=== PATIENT | female | born 1985 | race Caucasian/White ===

== ENCOUNTER 2017-01-06 12:32 | Emergency (ER) ==
--- NOTE | 2017-01-06 13:06 | EKG Report ---
Test Performed on : 01/06/2017 12:50:45 PM Test Reason : CP Blood Pressure : / mmHG Vent. Rate : 091 BPM Atrial Rate : 091 BPM P-R Int : 146 ms QRS Dur : 076 ms QT Int : 360 ms P-R-T Axes : 063 026 043 degrees QTc Int : 442 ms Normal sinus rhythm. Normal ECG No previous ECGs available Unconfirmed Result
[2017-01-06] MEDS ORDERED: ASPIRIN PO STA (13:11)
[2017-01-06 13:32] LABS: MANUAL DIFF NEEDED? NO
[2017-01-06 13:34] LABS: BASO% 0.5 % (0.0-0.8); EOS# 0.16 X1000 (0.0-0.7); EOS% 1.6 % (0.0-10.0); HEMATOCRIT 39.4 % (37.0-47.0); IMM GRAN# 0.01 X1000 (0.0-0.04); IMM GRAN% 0.1 % (0.0-0.5); LYMPH# 3.01 X1000 (1.2-3.4); LYMPH% 29.7 % (20.5-51.1); MCH 32.9 PG (27-31); MCHC 35.5 g/dL (33-37); MCV 92.7 FL (81-99); MONO# 0.85 X1000 (0.11-0.59); MONO% 8.4 % (1.7-9.3); MPV 9.7 FL (7.4-10.4); NEUT% 59.7 % (42.2-75.2); PLT 266 X1000 (130-400); RBC 4.25 XMIL (4.2-5.4)
--- NOTE | 2017-01-06 13:50 | Diag Imaging Result Document ---
PROCEDURE NAME: CHEST-2 VIEWS - 01/06/2017 TWO VIEWS OF THE CHEST: FINDINGS: There is no evidence of acute cardiac or pulmonary disease. Compared to a 07/06/2015, there has been no significant change in the appearance of the chest. IMPRESSION: No evidence of acute disease.
[2017-01-06 13:53] LABS: INR 0.93 (0.86-1.15); PROTIME 12.8 Seconds (12.1-15.5)
[2017-01-06 13:54] LABS: PTT PL 27.5 Seconds (22.6-43.9)
[2017-01-06 13:56] LABS: AGAP 11; ALBUMIN 4.4 g/dL (3.5-5.0); ALKALINE PHOSPHATASE 85 U/L (32-104); BUN 8 mg/dL (8-22); CALCIUM 9.6 mg/dL (8.8-10.2); CHLORIDE 104 mmol/L (98-107); CK PROFILE 128 U/L (24-173); COSMO 276; GOT 16 U/L (10-30); GPT 14 U/L (10-36); MAGNESIUM 2.1 mg/dL (1.5-2.7); POTASSIUM 3.5 mmol/L (3.5-5.1); SODIUM 139 mmol/L (136-145); TCO2 25 mmol/L (25-35)
--- NOTE | 2017-01-06 14:01 | PROVIDER DOCUMENTATION ---
HPI-Chest Pain - General Chief Complaint: General Adult Stated Complaint: CHEST PAIN/SOB Time Seen by Provider: 01/06/17 13:37 Source: patient, family (sister) Allergies/Adverse Reactions: Patient Allergies Allergy/AdvReac Type Severity Reaction Status Date / Time codeine Allergy Unknown NAUSEA/VOMI Verified 04/29/16 23:20 TING Home Medications: Home Medication List Medication Instructions Recorded Confirmed Last Taken Type Acetaminophen/Diphenhydramine 1 each PO Q6-8H PRN PRN #30 tablet 09/25/16 Unknown Rx [Percogesic 325-12.5 mg Tablet] Amoxicillin [Amoxil] 500 mg PO BID #10 capsule 09/25/16 Unknown Rx Benzocaine 20% Gel [Orajel Maximum 1 applicatn TOP 4XDAY PRN PRN #1 09/25/[address] 20% Gel] tube - History of Present Illness-CP Nature of Presenting Problem: Pt is 31 y/o F presents to the ED with CP. Pt states she woke up and was shaking then the CP came. Pt states SOB. Pt denies F. Pt states N but no V or D. Location: reports: central Chest Pain Radiation: reports: no radiation Quality of Pain: reports: tightness Severity in ED: mild Onset/Duration: this morning Timing: still present, intermittent Context/Activities at Onset: reports: light activity Modifying Factors: improves with: nothing Associated Symptoms: reports: diaphoresis, nausea, shortness of breath. denies : abdominal pain, back pain, dizziness, edema, fatigue, fever/chills, headache, heartburn, rash, swelling/lump in chest, syncope, vomiting, weakness Nitro Today/Relief: no nitro taken today Aspirin Treatment Today: no aspirin today Prior Chest Pain/Cardiac Workup: reports: no prior chest pain, no prior cardiac workup Similar Symptoms Previously?: Yes Recently Seen Here or By Another Healthcare Provider: No Review of Systems - Adult - REVIEW OF SYSTEMS - ADULT Constitutional: denies: chills, fever Eyes: denies: blurred vision, double vision Ears, Nose, Mouth & Throat: denies: ear pain, nose pain, throat pain Cardiovascular: reports: chest pain. denies: heart murmur, irregular heart rate Respiratory: reports: shortness of breath. denies: cough, wheezing Gastrointestinal: reports: nausea. denies: abdominal pain, diarrhea, vomiting Genitourinary: denies: dysuria, hematuria Musculoskeletal: denies: bone pain, joint pain, neck pain Integumentary: denies: hives, itching Neurological: denies: dizziness/vertigo, headache/migraines Psychiatric: reports: no symptoms reported Endocrine: reports: no symptoms reported Hematologic/Lymphatic: reports: no symptoms reported Allergic/Immunologic: reports: no symptoms reported All Other Systems: Reviewed and Negative Past History - Adult - PAST MEDICAL HISTORY-ADULT Review of Records: reports: Nursing Assessment Review, Medications Reviewed, Social history reviewed & non-contributory. Major Childhood Illnesses: reports: denies history Cardiovascular: reports: denies history Respiratory: reports: denies history Gastrointestinal: reports: GERD Obstetrical/Gynecological: reports: denies history Genitourinary: reports: denies history Musculoskeletal: reports: denies history Neurological: reports: denies history Endocrine/Immune: reports: denies history Other Conditions: reports: denies history - PRIOR SURGERIES/PROCEDURES Surgical/Procedure History: reports: cholecystectomy, BTL - IMMUNIZATION STATUS Childhood Immunizations: See Nurse Assessment Flu Vaccine: See Nurse Assessment - FAMILY HISTORY Family History: CAD over 55 yo, CVA/TIA - SOCIAL HISTORY Smoking: cigarettes, less than 1 pack/day Provider spent 3-5 mins advising pt. on dangers of tobacco.: Discussed manners to quit use, and f/u contacts for add'l counseling. Substance Use: denies Living Situation: family Physical Exam-General - PHYSICAL EXAM-ADULT Initial Vital Signs Reviewed: Yes - CONSTITUTIONAL General Appearance: appears well, alert, no apparent distress, anxious - EYES Eyes: PERRL/EOMI, pink conjunctivae, fundi clear, no AV nicking - HEAD, EARS, NOSE, MOUTH & THROAT HENMT: normocephalic/atraumatic, moist mucous membranes, normal ENT inspection, TMs normal, pharynx normal - NECK Neck: non-tender, full range of motion, supple, normal inspection - RESPIRATORY Respiratory: chest non-tender, lungs clear, normal breath sounds, no pleuratic chest pain, no respiratory distress, no accessory muscle use - CARDIOVASCULAR Cardiovascular: normal peripheral pulses, regular rate, rhythm, no edema, no gallop, no JVD, no murmur - GASTROINTESTINAL (ABDOMEN) Abdominal Exam: normal bowel sounds, non tender, soft, no organomegaly, no pulsatile mass - LYMPHATIC Lymphatic: no adenopathy - MUSCULOSKELETAL Back Exam: normal inspection, no CVA tenderness, no vertebral tenderness Extremity: normal range of motion, non-tender, normal gait, normal inspection, no pedal edema, no calf tenderness, normal capillary refill, pelvis stable - SKIN Integumentary: normal color, normal turgor, warm/dry - NEUROLOGIC Neurologic: supervisor title II-XII nml as tested, grossly normal, no motor/sensory deficits - PSYCHIATRIC Psych/Mental Status: normal thought content, normal thought process, oriented x 3, anxious Progress - PLAN OF CARE/RESULTS Progress/Plan/Lab Results: Laboratory Tests 01/06/17 01/06/17 01/06/17 13:22 13:22 13:22 WBC RBC Hgb Hct MCV MCH MCHC RDW Std Deviation Plt Count MPV Immature Gran % (Auto) Neut % (Auto) Lymph % (Auto) [place] % (Auto) Eos % (Auto) Baso % (Auto) Immature Gran # (Auto) Neut # (Auto) Lymph # (Auto) [place] # (Auto) Eos # (Auto) Baso # (Auto) PT INR APTT (Factor Assay) D-Dimer Sodium 139 Potassium 3.5 Chloride 104 Carbon Dioxide 25 Anion Gap 11 BUN 8 Creatinine 0.7 Estimated GFR/1.73 m2 > 60 BUN/Creatinine Ratio 11 Glucose 93 Calculated Osmolality 276 Calcium 9.6 Magnesium 2.1 Total Bilirubin 0.60 AST 16 ALT 14 Alkaline Phosphatase 85 Creatine Kinase 128 Troponin T < 0.010 Esb-M-Khtyhvwbius Pept 36 Total Protein 7.0 Albumin 4.4 Globulin 3.0 Albumin/Globulin Ratio 2.0 Urine Source Urine Color Urine Clarity Urine pH Ur Specific [place] Urine Protein Urine Ketones Urine Blood Urine Nitrite Urine Bilirubin Urine Urobilinogen Urine WBC Urine Glucose 01/06/17 01/06/17 01/06/17 13:22 13:22 13:35 WBC 10.15 RBC 4.25 Hgb 14.0 Hct 39.4 MCV 92.7 MCH 32.9 H MCHC 35.5 RDW Std Deviation 10.9 L Plt Count 266 MPV 9.7 Immature Gran % (Auto) 0.1 Neut % (Auto) 59.7 Lymph % (Auto) 29.7 [place] % (Auto) 8.4 Eos % (Auto) 1.6 Baso % (Auto) 0.5 Immature Gran # (Auto) 0.01 Neut # (Auto) 6.07 Lymph # (Auto) 3.01 [place] # (Auto) 0.85 H Eos # (Auto) 0.16 Baso # (Auto) 0.05 PT 12.8 INR 0.93 APTT (Factor Assay) 27.5 D-Dimer 0.25 Sodium Potassium Chloride Carbon Dioxide Anion Gap BUN Creatinine Estimated GFR/1.73 m2 BUN/Creatinine Ratio Glucose Calculated Osmolality Calcium Magnesium Total Bilirubin AST ALT Alkaline Phosphatase Creatine Kinase Troponin T Tea-E-Yuqqrafjjol Pept Total Protein Albumin Globulin Albumin/Globulin Ratio Urine Source CLEAN CATCH Urine Color YELLOW Urine Clarity CLEAR Urine pH 7.0 Ur Specific [place] 1.000 Urine Protein NEGATIVE Urine Ketones NEGATIVE Urine Blood 3+ A Urine Nitrite NEGATIVE Urine Bilirubin NEGATIVE Urine Urobilinogen NORMAL Urine WBC TRACE A Urine Glucose NEGATIVE Orders Category Date Time Status CHEST-2 VIEWS [RAD] Stat Exams 01/06/17 13:11 Draft CBC WITH ELECTRONIC DIFF [HEME] Stat Lab 01/06/17 13:22 Completed CK PROFILE [SP CHEM] Stat Lab 01/06/17 13:22 Completed COMPREHENSIVE METABOLIC PANEL [CHEM] Stat Lab 01/06/17 13:22 Completed D-DIMER PL [COAG] Stat Lab 01/06/17 13:22 Completed MAGNESIUM [CHEM] Stat Lab 01/06/17 13:22 Completed TEST-URINE [PREG] Stat Lab 01/06/17 13:35 Received PRO B-NATRIURETIC PEPTIDE Stat Lab 01/06/17 13:22 Completed [address]IME WITH INR PL [COAG] Stat Lab 01/06/17 13:[address] [COAG] Stat Lab 01/06/17 13:22 Completed TROPONIN T Stat Lab 01/06/17 13:[address] W/POSS RFLX CULT [URINALYSIS] Stat Lab 01/06/17 13:35 Results URINE DRUG SCREEN PL Stat Lab 01/06/17 13:35 Received Aspirin Med 01/06/17 13:11 Discontinued 325 mg PO STAT STA Lorazepam [Ativan] Med 01/06/17 14:02 Discontinued 1 mg PO NOW ONE Ondansetron Odt [Zofran Odt] Med 01/06/17 14:02 Discontinued 4 mg PO NOW ONE EKG [EKG] Stat Ther 01/06/17 12:48 Draft EKG [EKG] Stat Ther 01/06/17 13:11 Ordered Vital Signs - 24 hr 01/06/17 12:34 Temperature 97.1 F L Pulse Rate 79 Respiratory 18 Rate Blood Pressure 112/73 O2 Sat by Pulse 99 Oximetry Laboratory Tests 01/06/17 01/06/17 01/06/17 13:22 13:22 13:22 WBC RBC Hgb Hct MCV MCH MCHC RDW Std Deviation Plt Count MPV Immature Gran % (Auto) Neut % (Auto) Lymph % (Auto) [place] % (Auto) Eos % (Auto) Baso % (Auto) Immature Gran # (Auto) Neut # (Auto) Lymph # (Auto) [place] # (Auto) Eos # (Auto) Baso # (Auto) PT INR APTT (Factor Assay) D-Dimer Sodium 139 Potassium 3.5 Chloride 104 Carbon Dioxide 25 Anion Gap 11 BUN 8 Creatinine 0.7 Estimated GFR/1.73 m2 > 60 BUN/Creatinine Ratio 11 Glucose 93 Calculated Osmolality 276 Calcium 9.6 Magnesium 2.1 Total Bilirubin 0.60 AST 16 ALT 14 Alkaline Phosphatase 85 Creatine Kinase 128 Troponin T < 0.010 Uwe-Q-Ycnmhkmtmuv Pept 36 Total Protein 7.0 Albumin 4.4 Globulin 3.0 Albumin/Globulin Ratio 2.0 Urine Source Urine Color Urine Clarity Urine pH Ur Specific [place] Urine Protein Urine Ketones Urine Blood Urine Nitrite Urine Bilirubin Urine Urobilinogen Urine WBC Urine Glucose Urine Test Urine Opiates Screen Ur Oxycodone Screen Urine Methadone Screen Ur Barbituates Screen Ur Tricyclics Screen Ur Phencyclidine Scrn Ur Amphetamines Screen U Methamphetamines Scrn Urine MDMA Screen U Benzodiazepines Scrn Urine Cocaine Screen U Cannabinoids Screen 01/06/17 01/06/17 01/06/17 13:22 13:22 13:35 WBC 10.15 RBC 4.25 Hgb 14.0 Hct 39.4 MCV 92.7 MCH 32.9 H MCHC 35.5 RDW Std Deviation 10.9 L Plt Count 266 MPV 9.7 Immature Gran % (Auto) 0.1 Neut % (Auto) 59.7 Lymph % (Auto) 29.7 [place] % (Auto) 8.4 Eos % (Auto) 1.6 Baso % (Auto) 0.5 Immature Gran # (Auto) 0.01 Neut # (Auto) 6.07 Lymph # (Auto) 3.01 [place] # (Auto) 0.85 H Eos # (Auto) 0.16 Baso # (Auto) 0.05 PT 12.8 INR 0.93 APTT (Factor Assay) 27.5 D-Dimer 0.25 Sodium Potassium Chloride Carbon Dioxide Anion Gap BUN Creatinine Estimated GFR/1.73 m2 BUN/Creatinine Ratio Glucose Calculated Osmolality Calcium Magnesium Total Bilirubin AST ALT Alkaline Phosphatase Creatine Kinase Troponin T Tvo-D-Jwonkndrwmr Pept Total Protein Albumin Globulin Albumin/Globulin Ratio Urine Source Urine Color Urine Clarity Urine pH Ur Specific [place] Urine Protein Urine Ketones Urine Blood Urine Nitrite Urine Bilirubin Urine Urobilinogen Urine WBC Urine Glucose Urine Test NEGATIVE Urine Opiates Screen Ur Oxycodone Screen Urine Methadone Screen Ur Barbituates Screen Ur Tricyclics Screen Ur Phencyclidine Scrn Ur Amphetamines Screen U Methamphetamines Scrn Urine MDMA Screen U Benzodiazepines Scrn Urine Cocaine Screen U Cannabinoids Screen 01/06/17 01/06/17 13:35 13:35 WBC RBC Hgb Hct MCV MCH MCHC RDW Std Deviation Plt Count MPV Immature Gran % (Auto) Neut % (Auto) Lymph % (Auto) [place] % (Auto) Eos % (Auto) Baso % (Auto) Immature Gran # (Auto) Neut # (Auto) Lymph # (Auto) [place] # (Auto) Eos # (Auto) Baso # (Auto) PT INR APTT (Factor Assay) D-Dimer Sodium Potassium Chloride Carbon Dioxide Anion Gap BUN Creatinine Estimated GFR/1.73 m2 BUN/Creatinine Ratio Glucose Calculated Osmolality Calcium Magnesium Total Bilirubin AST ALT Alkaline Phosphatase Creatine Kinase Troponin T Avx-M-Nynbccabmln Pept Total Protein Albumin Globulin Albumin/Globulin Ratio Urine Source CLEAN CATCH Urine Color YELLOW Urine Clarity CLEAR Urine pH 7.0 Ur Specific [place] 1.000 Urine Protein NEGATIVE Urine Ketones NEGATIVE Urine Blood 3+ A Urine Nitrite NEGATIVE Urine Bilirubin NEGATIVE Urine Urobilinogen NORMAL Urine WBC TRACE A Urine Glucose NEGATIVE Urine Test Urine Opiates Screen NONE DETECTED Ur Oxycodone Screen NONE DETECTED Urine Methadone Screen NONE DETECTED Ur Barbituates Screen NONE DETECTED Ur Tricyclics Screen NONE DETECTED Ur Phencyclidine Scrn NONE DETECTED Ur Amphetamines Screen NONE DETECTED U Methamphetamines Scrn NONE DETECTED Urine MDMA Screen NONE DETECTED U Benzodiazepines Scrn NONE DETECTED Urine Cocaine Screen NONE DETECTED U Cannabinoids Screen NONE DETECTED - EKG 1 Time of EKG reading by physician:: 12:50 EKG Read and Signed by:: Lorri Hook EKG Interpretation (*Must complete 3 of following elements*): Normal Rate: 91 Rhythm: normal sinus rhyhm Comments: normal ECG - XRAY 1 XRAY: Bilateral XRAY Study: Chest Impression: Normal XRAY Interpretation: NAD Departure - Departure Time of Disposition Order: 14:44 DIAGNOSIS: Atypical chest pain, Anxiety Disposition: HOME 01 Certified Medical Emergency: Emergent Condition: Stable Additional Instructions: ED Follow Up Instructions: You have been treated by a care provider in the Emergency Department. These instructions are being provided to you so you can have an understanding of how to care for yourself upon discharge. Upon discharge from the Emergency Department, you are responsible for making arrangements for follow-up care by a physician of your choice. Take all prescribed medications as directed. Return to the Emergency Department immediately for any new or worsening symptoms. You may call the Physician Referral phone number at [phone] to obtain a list of Physicians who are taking new patients. Referrals: None,PCP [Primary Care Provider] - Attestation - Scribe Verification/Attestation Scribe:: Lizbeth Linares Acting as Scribe for:: Lorri Hook Scribe documention review:: This chart was documented by a scribe and accurately reflects the service the provider performed and the decisions made by the provider.
[2017-01-06] MEDS ORDERED: ATIVAN PO ONE (14:02)
[2017-01-06] MEDS ORDERED: ZOFRAN ODT PO ONE (14:02)
[2017-01-06 14:09] LABS: URINE CULTURE PL NEEDED? NO; URINE SOURCE CLEAN CATCH
[2017-01-06 14:24] LABS: BILIRUBIN URINE NEGATIVE (NEGATIVE); BLOOD URINE 3+ (NEGATIVE); CLARITY CLEAR (CLEAR); COLOR YELLOW; GLUCOSE URINE NEGATIVE (NEGATIVE); LEUKOCYTES URINE TRACE (NEGATIVE); NITRITE URINE NEGATIVE (NEGATIVE); PROTEIN URINE NEGATIVE (NEGATIVE); UROBILINOGEN URINE NORMAL
[2017-01-06 14:31] LABS: UR AMPHETAMINES QUAL NONE DETECTED (NONE DETECT); UR BARBITUATES QUAL NONE DETECTED (NONE DETECT); UR BENZODIAZEPIN QUAL NONE DETECTED (NONE DETECT); UR CANNABINOIDS QUAL NONE DETECTED (NONE DETECT); UR COCAINE QUAL NONE DETECTED (NONE DETECT); UR MDMA QUAL NONE DETECTED (NONE DETECT); UR METHADONE QUAL NONE DETECTED (NONE DETECT); UR METHAMPHETAMINE QUAL NONE DETECTED (NONE DETECT); UR OPIATES QUAL NONE DETECTED (NONE DETECT); UR OXYCODONE QUAL NONE DETECTED (NONE DETECT); UR PCP QUAL NONE DETECTED (NONE DETECT); UR TCA QUAL NONE DETECTED (NONE DETECT)
[2017-01-06 14:39] LABS: URINE EPITHELIAL CELLS <10 /HPF (<10); URINE RBC <10 /HPF (<10); URINE WBC <10 /HPF (<10)
[2017-01-06 15:04] VITALS: BP 128/64
== END 2017-01-06 15:03 | disposition home or self-care (01) ==
LOC: P.ED 12:32
DX: R07.89 Other chest pain (principal); F41.9 Anxiety disorder, unspecified; R06.02 Shortness of breath; R61 Generalized hyperhidrosis; R11.2 Nausea with vomiting, unspecified; R22.33 Localized swelling, mass and lump, upper limb, bilateral; R25.2 Cramp and spasm; R20.2 Paresthesia of skin; F17.210 Nicotine dependence, cigarettes, uncomplicated; Z71.6 Tobacco abuse counseling; Z82.49 Family history of ischemic heart disease and other diseases of the circulatory system; Z82.3 Family history of stroke
CPT/HCPCS: 36415; 71020; 80053; 80305; 81001; 81025; 82550; 83735; 83880; 84484; 85025; 85379; 85610; 85730; 93005; 99284